=== PATIENT | female | born 1995 | race Caucasian/White ===

== ENCOUNTER 2018-04-14 19:57 | Outpatient (CLI) | payer OTHER ==
[~2018-04-14] VITALS: Ht 165.1 cm; Wt 97.7 kg
[~2018-04-14 19:57] MED LIST: DOCU-131 PO; IBUP-1222 PO; OXYC-302 PO; PREN-1 PO
== END 2018-04-14 21:30 | disposition home or self-care (01) ==
LOC: LDOP 19:57
PROVIDERS: ATTEND Obstetrics & Gynecology
DX: O42.92 Full-term premature rupture of membranes, unspecified as to length of time between rupture and onset of labor (principal); O26.893 Other specified pregnancy related conditions, third trimester; R10.2 Pelvic and perineal pain; Z3A.38 38 weeks gestation of pregnancy
CPT/HCPCS: 59025; 89060; 99211; G0463; Q0114